=== PATIENT | female | born 1960 | race African-American/Black ===

== ENCOUNTER 2025-03-16 15:00 | Outpatient (AMB) | payer OTHER, SELFPAY ==
--- NOTE | 2025-03-16 15:11 | HO.NEPHOV ---
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 She has been a diabetic for sometime with sub optimal blood sugar control. She had taken Jardiance in the past which apparently was causing vaginal candidiasis and was discontinued. She has been hypertensive for sometime and is on ARB. She denies any excess sodium in the diet. She has no H/O hypokalemia , hypercalcemia, ELINOR, uncontrolled thyroid disorders but has retinopathy, renal dysfunction or proteinuria. She has H/O renal calculi. She denies significant weight gain, excess NSAID intake, CAD, carotid stenosis, PAD, CVA or CHF. She is compliant with medication and denies orthostatic symptoms, flushing, palpitations, edema, chest pain, headache or visual disturbances. Her recent serum creatinine has gone up to 1.6. She does not take excess NSAID's and maintain good hydration [facility] Medical History (Updated 03/16/25 @ 15:19 by Thaddeus Mei MD) Hyperglycemia Submucous leiomyoma of uterus Severe obesity Perimenopausal Microalbuminuria History of menorrhagia Hypertension Hypercholesteremia Extramedullary hematopoiesis Diabetic retinopathy Diabetes mellitus Bilateral kidney stones Anemia Surgical History (Updated 03/16/25 @ 15:14 by Chiara Farooq MA) History of cataract surgery History of hysterectomy Family History (Updated 03/16/25 @ 15:13 by Chiara Farooq MA) Father Diabetes mellitus Mother Cancer Son Diabetes mellitus Sister Diabetes mellitus Social History (Updated 03/16/25 @ 15:12 by Chiara Farooq MA) Alcohol intake: never Patient Tobacco Use Status: Never used Tobacco Use of substances other than those prescribed or required for medical reasons: No Review of Systems Const All systems reviewed & are unremarkable except as noted in HPI and below Physical Exam Const General: comfortable and no acute distress Orientation/consciousness: patient oriented x3 HEENT Head: Yes normocephalic Mouth: Normal oral and palatal mucosa present Eyes EOM: EOMs intact bilaterally Neck Neck: Yes supple Resp Auscultation: clear to auscultation bilaterally Cardio Jugular venous distension: no JVD Rate: regular rate GI Palpation (GI): Soft to palpation Auscultation: normal bowel sounds General: Yes no CVA tenderness Back/Spine/Pelvis Back: no CVA tenderness Skin General skin exam: no rashes or lesions noted Neuro General: patient oriented x3 and moves all extremities Extrem General: Yes no pedal edema Assessment & Plan Assessment & Plan (1) CKD stage 3 due to type 2 diabetes mellitus: Code(s): E11.22 - Type 2 diabetes mellitus with diabetic chronic kidney disease; N18.30 - Chronic kidney disease, stage 3 unspecified Category: Medical (2) Hypertension: Code(s): I10 - Essential (primary) hypertension Category: Medical Qualifiers: Hypertension type: primary hypertension Qualified Code(s): I10 - Essential (primary) hypertension Plan Low sodium diet; continued life style modification Will benefit from weight loss- ? GLP 1 agonist given CKD Ordered Doppler of renal arteries and renal USS Encouraged to monitor BP at home; Not on SGLT2 i(pt D/Rakesh it) No NSAID's if possible; Good hydration; Labs ordered for today Answered all questions/ Follow up given Orders: Orders Complete Blood Count Auto Diff Today E11.22 - Type 2 diabetes mellitus with diabetic chronic kidney disease, I10 - Essential (primary) hypertension, N18.30 - Chronic kidney disease, stage 3 unspecified Immunofixation, Random Urine Today E11.22 - Type 2 diabetes mellitus with diabetic chronic kidney disease, I10 - Essential (primary) hypertension, N18.30 - Chronic kidney disease, stage 3 unspecified Complement C4 Today E11.22 - Type 2 diabetes mellitus with diabetic chronic kidney disease, I10 - Essential (primary) hypertension, N18.30 - Chronic kidney disease, stage 3 unspecified Myeloperoxidase Antibody Today E11.22 - Type 2 diabetes mellitus with diabetic chronic kidney disease, I10 - Essential (primary) hypertension, N18.30 - Chronic kidney disease, stage 3 unspecified Proteinase 3 PR3 Antibodies Today E11.22 - Type 2 diabetes mellitus with diabetic chronic kidney disease, I10 - Essential (primary) hypertension, N18.30 - Chronic kidney disease, stage 3 unspecified Phospholipase A2 Receptor Pnl Today E11.22 - Type 2 diabetes mellitus with diabetic chronic kidney disease, I10 - Essential (primary) hypertension, N18.30 - Chronic kidney disease, stage 3 unspecified Anti Glomerular Basement Memb Today E11.22 - Type 2 diabetes mellitus with diabetic chronic kidney disease, I10 - Essential (primary) hypertension, N18.30 - Chronic kidney disease, stage 3 unspecified Anti DNA DS Antibody Today E11.22 - Type 2 diabetes mellitus with diabetic chronic kidney disease, I10 - Essential (primary) hypertension, N18.30 - Chronic kidney disease, stage 3 unspecified Parathyroid Hormone Intact Today E11.22 - Type 2 diabetes mellitus with diabetic chronic kidney disease, I10 - Essential (primary) hypertension, N18.30 - Chronic kidney disease, stage 3 unspecified US renal BI 3 Weeks E11. - Type 2 diabetes mellitus with diabetic chronic kidney disease, I10 - Essential (primary) hypertension, N18.30 - Chronic kidney disease, stage 3 unspecified US renal doppler 3 Weeks E11. - Type 2 diabetes mellitus with diabetic chronic kidney disease, I10 - Essential (primary) hypertension, N18.30 - Chronic kidney disease, stage 3 unspecified Electrolytes Today E11. - Type 2 diabetes mellitus with diabetic chronic kidney disease, I10 - Essential (primary) hypertension, N18.30 - Chronic kidney disease, stage 3 unspecified Calcium Today E11. - Type 2 diabetes mellitus with diabetic chronic kidney disease, I10 - Essential (primary) hypertension, N18.30 - Chronic kidney disease, stage 3 unspecified Blood Urea Nitrogen Today E11. - Type 2 diabetes mellitus with diabetic chronic kidney disease, I10 - Essential (primary) hypertension, N18.30 - Chronic kidney disease, stage 3 unspecified Creatinine Today E11.22 - Type 2 diabetes mellitus with diabetic chronic kidney disease, I10 - Essential (primary) hypertension, N18.30 - Chronic kidney disease, stage 3 unspecified Protein Creatinine Ratio, Ur Today E11.22 - Type 2 diabetes mellitus with diabetic chronic kidney disease, I10 - Essential (primary) hypertension, N18.30 - Chronic kidney disease, stage 3 unspecified Immunofixation Pnl, Serum Today E11.22 - Type 2 diabetes mellitus with diabetic chronic kidney disease, I10 - Essential (primary) hypertension, N18.30 - Chronic kidney disease, stage 3 unspecified Hepatitis B Core Antibody Today E11.22 - Type 2 diabetes mellitus with diabetic chronic kidney disease, I10 - Essential (primary) hypertension, N18.30 - Chronic kidney disease, stage 3 unspecified Hepatitis B Surface Antibody Today E11.22 - Type 2 diabetes mellitus with diabetic chronic kidney disease, I10 - Essential (primary) hypertension, N18.30 - Chronic kidney disease, stage 3 unspecified Complement C3 Today E11. - Type 2 diabetes mellitus with diabetic chronic kidney disease, I10 - Essential (primary) hypertension, N18.30 - Chronic kidney disease, stage 3 unspecified Vitamin D 25-OH Total Today . - Type 2 diabetes mellitus with diabetic chronic kidney disease, I10 - Essential (primary) hypertension, N18.30 - Chronic kidney disease, stage 3 unspecified Coding Level of Care Code New Pt Level 4 (06479) Diagnoses CKD stage 3 due to type 2 diabetes mellitus E11.; N18.30 Primary hypertension I10 Hypertension type: primary hypertension
[2025-03-16 15:17] VITALS: BP 144/90; PULSE 101; O2SAT 97; BMI 37.6
--- OUTSIDE RECORDS SUMMARY | 2025-03-16 16:18 | XMS_ITS | Clinical Summary ---
Author Organization 175 [facility] Address [address] [place] [address] Phone Care Team Providers Care Management Advisor Name Role Phone Camron Stovall MD Primary Care Provider [phone] Allergies Active Allergy Reactions Criticality Noted Date Comments Penicillin G 09/03/2024 Medications acetaminophen (TYLENOL) 500 mg tablet Take 2 tablets (1,000 mg total) by mouth every 8 (eight) hours. 30 tablet 09/04/19 25 Active cholecalcifero l (VITAMIN D-3) 1,250 mcg (50,000 unit) capsule Take 1 capsule (50,000 Units total) by mouth. 11/17/19 25 Active cyanocobalamin , vitamin B-12, 1,000 mcg tablet, sublingual TAKE 1 TABLET (SUBLINGUAL) DAILY FOR 90 DAYS 11/17/19 25 Active Jardiance 25 mg tablet Take 1 tablet (25 mg total) by mouth 1 (one) time each day. 07/23/20 24 Active fenofibrate (TRICOR) 145 mg tablet Take 1 tablet (145 mg total) by mouth 1 (one) time each day. 10/01/19 25 Active glipiZIDE (GLUCOTROL XL) 10 mg 24 hr tablet TAKE 1 TABLET (ORAL) FOR 90 DAYS 01/21/20 25 Active ketorolac (ACULAR) 0.5 % ophthalmic solution PLEASE SEE ATTACHED FOR DETAILED DIRECTIONS 01/21/20 25 Active losartan (COZAAR) 100 mg tablet Take 1 tablet (100 mg total) by mouth 1 (one) time each day. 01/21/20 25 Active mecobalamin, vitamin B12, 1,000 mcg tablet,disinte grating DISSOLVE 1 TABLET BY MOUTH ONCE DAILY 05/28/20 24 Active metFORMIN (GLUCOPHAGE) 1,000 mg tablet Take 1 tablet (1,000 mg total) by mouth 2 (two) times a day. 01/11/20 25 Active nystatin (MYCOSTATIN) ointment APPLY 1 APPLICATION OF OINTMENT TOPICALLY UNDER THE BREAST FOLDS THREE TIMES DAILY 04/27/20 24 Active atorvastatin (LIPITOR) 10 mg tablet Take 1 tablet (10 mg total) by mouth 1 (one) time each day. 30 each 5 02/16/20 25 025 Active atorvastatin (LIPITOR) 10 mg tablet Take 1 tablet (10 mg total) by mouth 1 (one) time each day. 30 each 5 03/02/20 25 025 Active ibuprofen (ADVIL,MOTRIN) 600 mg tablet Take 1 tablet (600 mg total) by mouth every 8 (eight) hours if needed for moderate pain. 30 tablet 09/04/19 25 025 Discontinued Active Problems Problem Noted Date Diagnosed Date Diabetes mellitus ([facility] V24, [facility] V28) Diabetic retinopathy ([facility] V24, [facility] V28) 02/15/2025 Extramedullary hematopoiesis 02/15/2025 Hypercholesterolemia 02/15/2025 Hypertension 02/15/2025 Menorrhagia 02/15/2025 Microalbuminuria 02/15/2025 Severe obesity ([facility] V24, [facility] V28) 2024 Submucous leiomyoma of uterus 02/15/2025 Anemia 02/15/2025 Bilateral kidney stones 02/15/2025 Perimenopausal 04/19/2006 Encounters Date Type Department Care Team Description 03/01/2025 Telephone Internal Medicine - [address] [phone] Gwendolyn Ram MA Lab Results 02/15/2025 2:00 PM EDT Office Visit Internal Medicine [address] [phone] Camron Stovall MD Diabetes mellitus due to underlying condition with chronic kidney disease, without long-term current use of insulin, unspecified CKD stage (CMS/HCC V24, CMS/HCC V28) (Primary Dx); Primary hypertension; Hypercholesterolemia; Stage 2 chronic kidney disease from Last 3 Months Social History Tobacco Use Types Packs/Day Years Used Date Smoking Tobacco: Never Assessed Comments Unknown Sex and Gender Information Value Date Recorded Sex Assigned at Female 09/03/2024 10:32 PM EST Legal Sex Female 6:33 PM EST Gender Identity Female 09/03/2024 10:32 PM EST Sexual Orientation Straight 09/03/2024 10 :32 PM EST Last Filed Vital Signs Vital Sign Reading Time Taken Comments Blood Pressure 125/78 02/15/2025 1:49 PM EDT Pulse 103 02/15/2025 1:49 PM EDT Temperature 36.4 C (97.6 F) 02/15/2025 1:49 PM EDT Respiratory Rate 18 09/04/2024 2:06 AM EST Oxygen Saturation 95% 02/15/2025 1:49 PM EDT Inhaled Oxygen Concentration - - Weight 96.2 kg (212 lb) 02/15/2025 1:49 PM EDT Height 162.6 cm (5' 4 ) 02/15/2025 1:49 PM EDT Body Mass Index 36.39 02/15/2025 1:49 PM EDT Plan of Treatment Upcoming Encounters Date Type Department Care Team (Late st Contact Info) Description 07/05/2025 1:15 PM EST Office Visit Internal Medicine - [place] 175 [facility] [address] [place] [phone] Camron Stovall MD 175 [facility] [address] [place] [address] Health Maintenance Due Date Last Done Comments Breast Cancer Screening 1959 Diabetes: Annual Foot Exam 1969 Diabetes: Annual Retina Eye Exam 1969 Zoster Vaccines (1 of 2) 1978 Cervical Cancer Screening: Pap Smear 1980 RSV Immunization Adult Patients (1 - Risk 60-74 years 1-dose series) 2019 Colorectal Cancer Screening: Colonoscopy 08/04/2022 Depression Screening 08/04/2022 Hepatitis C Screening 08/04/2022 Osteoporosis Screening (Bone Density Screening) 08/04/2022 Social Influencers of Health Screening 08/04/2022 Falls Risk Assessment 2024 Diabetes: Annual Urine Albumin-Creatinine Ratio (uACR) 09/04/2024 COVID-19 Vaccine (8 - Pfizer risk season) 2025 09/15/2024, 05/27/2023, 06/24/2022, Additional history exists Influenza Vaccine (#1) 2025 , 05/24/2023, 06/24/2022, Additional history exists Diabetes: Blood Sugar Control Test (HGBA1C) 08/24/2025 02/22/2025 Diabetes: Annual GFR (Glomerular Filtration Rate) 02/22/2026 02/22/2025, 09/03/2024 Hypertension/CHF/CAD Annual BMP Blood Test 02/22/2026 02/22/2025, 09/03/2024 Cholesterol Screening (Lipid Panel) 02/22/2030 02/22/2025 DTaP,Tdap,and Td Vaccines (3 - Td or Tdap) 04/27/2034 04/27/2024, 02/25/2017 Pneumococcal Vaccine: 50+ Years Completed 04/27/2024, 02/03/2009 HIB Vaccines Aged Out No longer eligi ble based on patient's age to complete this topic HPV Vaccines Aged Out No longer eligi ble based on patient's age to complete this topic Hepatitis A Vaccines Aged Out No long er eligible based on patient's age to complete this topic Hepatitis B Vaccines Aged Out No long er eligible based on patient's age to complete this topic IPV Vaccines Aged Out No longer eligi ble based on patient's age to complete this topic MMR Vaccines Aged Out No longer eligi ble based on patient's age to complete this topic Meningococcal ACWY Vaccine Aged Out N o longer eligible based on patient's age to complete this topic Meningococcal B Vaccine Aged Out No l onger eligible based on patient's age to complete this topic RSV Immunization Patients Under 20 months Aged Out No longer eligible based on patient's age to complete this topic Varicella Vaccines Aged Out No longer eligible based on patient's age to complete this topic Procedures Procedure Name Priority Date/Time Associated Diagnosis Comments CBC WITH AUTO DIFFERENTIAL Routine 02/22/2025 9:19 AM EDT Primary hypertension Hypercholesterolemi a Diabetes mellitus due to underlying condition with chronic kidney disease, without long-term current use of insulin, unspecified CKD stage (CMS/HCC V24, CMS/HCC V28) HEMOGLOBIN A1C Routine 02/22/2025 9:19 AM EDT Primary hypertension Hypercholesterolemi a Diabetes mellitus due to underlying condition with chronic kidney disease, without long-term current use of insulin, unspecified CKD stage (CMS/HCC V24, CMS/HCC V28) THYROID STIMULATING HORMONE Routine 02/22/2025 9:19 AM EDT Primary hypertension Hypercholesterolemi a Diabetes mellitus due to underlying condition with chronic kidney disease, without long-term current use of insulin, unspecified CKD stage (CMS/HCC V24, CMS/HCC V28) LIPID PANEL WITH REFLEX TO DIRECT LDL Routine 02/22/2025 9:19 AM EDT Primary hypertension Hypercholesterolemi a Diabetes mellitus due to underlying condition with chronic kidney disease, without long-term current use of insulin, unspecified CKD stage (CMS/HCC V24, CMS/HCC V28) COMPREHENSIVE METABOLIC PANEL Routine 02/22/2025 9:19 AM EDT Primary hypertension Hypercholesterolemi a Diabetes mellitus due to underlying condition with chronic kidney disease, without long-term current use of insulin, unspecified CKD stage (CMS/HCC V24, CMS/HCC V28) CBC AND DIFFERENTIAL Routine 02/22/2025 9:19 AM EDT Primary hypertension Hypercholesterolemi a Diabetes mellitus due to underlying condition with chronic kidney disease, without long-term current use of insulin, unspecified CKD stage (CMS/HCC V24, CMS/HCC V28) from Last 3 Months Results * (ABNORMAL) Lipid panel with reflex to direct LDL (02/22/2025 9:19 AM EDT) [facility] Cholesterol 327(H) 0 - 200 mg/dL LAB CHEMISTRY METHOD 02/22/2025 8:24 PM EDT [facility] Triglycerides 263(H) 0 - 150 mg/dL LAB CHEMISTRY METHOD 02/22/2025 8:24 PM EDT [facility] HDL 56 >=40 mg/dL LAB CHEMISTRY METHOD 02/22/2025 8:24 PM EDT [facility] LDL Calculated 218(H) 0 - 100 mg/dL LAB CHEMISTRY METHOD 02/22/2025 8:24 PM EDT [facility] VLDL Cholesterol Solis 52.6 mg/dL LAB CHEMISTRY METHOD 02/22/2025 8:24 PM EDT [facility] Non HDL Chol. (LDL+VLDL) 271(H) <145 mg/dL LAB CHEMISTRY METHOD 02/22/2025 8:24 PM EDT [facility] Chol/HDL Ratio 5.8(H) 0.0 - 4.4 LAB CHEMISTRY METHOD 02/22/2025 8:24 PM EDT [facility] Blood Venous blood specimen / Unknown Venipuncture / Unknown 02/22/2025 9:19 AM EDT 02/22/2025 9:20 AM EDT us Camron Stovall MD LAB BLOOD ORDERABLES Final Resul t [facility] [address] [place] [address], * (ABNORMAL) CBC auto differential (02/22/2025 9:19 AM EDT) WBC 6.7 4.8 - 10.8 K/mcL LAB HEMETOLOGY METHOD 02/22/2025 2:15 PM EDT [facility] RBC 4.80 3.80 - 4.80 M/mcL LAB HEMETOLOGY METHOD 02/22/2025 2:15 PM EDT [facility] Hemoglobin 12.5 11.5 - 16.0 g/dL LAB HEMETOLOGY METHOD 02/22/2025 2:15 PM EDT [facility] Hematocrit 40.3 35.0 - 47.0 % LAB HEMETOLOGY METHOD 02/22/2025 2:15 PM EDT [facility] MCV 84.8 79.0 - 98.0 FL LAB HEMETOLOGY METHOD 02/22/2025 2:15 PM EDT [facility] MCH 26.3(L) 27.0 - 32.0 pcg LAB HEMETOLOGY METHOD 02/22/2025 2:15 PM EDT [facility] MCHC 31.0(L) 32.0 - 37.0 g/dL LAB HEMETOLOGY METHOD 02/22/2025 2:15 PM EDT [facility] RDW 13.5 11.0 - 15.0 % LAB HEMETOLOGY METHOD 02/22/2025 2:15 PM EDT [facility] Platelets 224 130 - 400 K/mcL LAB HEMETOLOGY METHOD 02/22/2025 2:15 PM EDT [facility] MPV 13.4(H) 7.0 - 11.0 FL LAB HEMETOLOGY METHOD 02/22/2025 2:15 PM EDT [facility] NRBC 0.0 <1.0 % LAB HEMETOLOGY METHOD 02/22/2025 2:15 PM EDT [facility] NRBC Absolute 0.00 <0.10 K/mcL LAB HEMETOLOGY METHOD 02/22/2025 2:15 PM EDT [facility] Neutrophils Relative 47.4 % LAB HEMETOLOGY METHOD 02/22/2025 2:15 PM EDT [facility] Lymphocytes Relative 38.7 % LAB HEMETOLOGY METHOD 02/22/2025 2:15 PM EDT [facility] Monocytes Relative 10.2 % LAB HEMETOLOGY METHOD 02/22/2025 2:15 PM EDT [facility] Eosinophils Relative 2.8 % LAB HEMETOLOGY METHOD 02/22/2025 2:15 PM EDT [facility] Basophils Relative 0.6 % LAB HEMETOLOGY METHOD 02/22/2025 2:15 PM EDT [facility] Immature Granulocytes Relative 0.3 % LAB HEMETOLOGY METHOD 02/22/2025 2:15 PM EDT [facility] Neutrophils Absolute 3.17 1.50 - 7.00 K/mcL LAB HEMETOLOGY METHOD 02/22/2025 2:15 PM EDT [facility] Lymphocytes Absolute 2.59 1.00 - 5.00 K/mcL LAB HEMETOLOGY METHOD 02/22/2025 2:15 PM EDT [facility] Monocytes Absolute 0.68 0.20 - 1.00 K/mcL LAB HEMETOLOGY METHOD 02/22/2025 2:15 PM EDT [facility] Eosinophils Absolute 0.19 0.00 - 0.50 K/mcL LAB HEMETOLOGY METHOD 02/22/2025 2:15 PM EDT [facility] Basophils Absolute 0.04 0.00 - 0.20 K/mcL LAB HEMETOLOGY METHOD 02/22/2025 2:15 PM EDT [facility] Immature Granulocytes Absolute 0.02 0.00 - 0.03 K/mcL LAB HEMETOLOGY METHOD 02/22/2025 2:15 PM EDT [facility] Blood Venous blood specimen / Unknown Venipuncture / Unknown 02/22/2025 9:19 AM EDT 02/22/2025 9:20 AM EDT us Camron Stovall MD LAB BLOOD ORDERABLES Final Resul t [facility] [address] [place] [address], * Thyroid stimulating hormone (02/22/2025 9:19 AM EDT) TSH 2.35 0.40 - 4.00 mcIU/mL LAB CHEMISTRY METHOD 02/22/2025 8:42 PM EDT [facility] Blood Venous blood specimen / Unknown Venipuncture / Unknown 02/22/2025 9:19 AM EDT 02/22/2025 9:20 AM EDT us Camron Stovall MD LAB BLOOD ORDERABLES Final Resul t Performing Organization Address [facility] Co de Phone Number [facility] [address] [place] [address], [place] [phone] * (ABNORMAL) Hemoglobin A1c (02/22/2025 9:19 AM EDT) Pathologist [facility] Hemoglobin A1C 9.6(H) <6.5 % LAB CHEMISTRY METHOD 02/22/2025 9:17 PM EDT [facility] Mean Bld Glu Estim. 229 mg/dL LAB CHEMISTRY METHOD 02/22/2025 9:17 PM EDT [facility] Blood Venous blood specimen / Unknown Venipuncture / Unknown 02/22/2025 9:19 AM EDT 02/22/2025 9:20 AM EDT us Camron Stovall MD LAB BLOOD ORDERABLES Final Resul t Performing Organization Address [facility]/ZIP Co de Phone Number [facility] [address] [place] [address], [place] [phone] * (ABNORMAL) Comprehensive metabolic panel (02/22/2025 9:19 AM EDT) Pathologist [facility] Sodium 140 133 - 145 mmol/L LAB CHEMISTRY METHOD 02/22/2025 8:26 PM EDT [facility] Potassium 4.6 3.5 - 5.5 mmol/L LAB CHEMISTRY METHOD 02/22/2025 8:26 PM EDT [facility] Chloride 106 96 - 110 mmol/L LAB CHEMISTRY METHOD 02/22/2025 8:26 PM [facility] CO2 27 21 - 32 mmol/L LAB CHEMISTRY METHOD 02/22/2025 8:26 PM [facility] Anion Gap 7 3 - 11 LAB CHEMISTRY METHOD 02/22/2025 8:26 PM [facility] Glucose 257(H) 70 - 100 mg/dL LAB CHEMISTRY METHOD 02/22/2025 8:26 PM [facility] BUN 33(H) 5 - 25 mg/dL LAB CHEMISTRY METHOD 02/22/2025 8:26 PM [facility] Creatinine 1.30(H) 0.50 - 1.10 mg/dL LAB CHEMISTRY METHOD 02/22/2025 8:26 PM [facility] eGFR 46(L) >=60 mL/min/1. 73m2 LAB CHEMISTRY METHOD 02/22/2025 8:26 PM [facility] Comment:Calculation based on the Chronic Kidney Disease Epidemiology Collaboration (CKD-EPI) equation refit without adjustment for race. BUN/Creatinine Ratio 25.4 LAB CHEMISTRY METHOD 02/22/2025 8:26 PM [facility] Calcium 10.1 8.5 - 10.5 mg/dL LAB CHEMISTRY METHOD 02/22/2025 8:26 PM [facility] AST (SGOT) 11 10 - 42 unit/L LAB CHEMISTRY METHOD 02/22/2025 8:26 PM [facility] ALT (SGPT) 19 10 - 60 unit/L LAB CHEMISTRY METHOD 02/22/2025 8:26 PM [facility] Alkaline Phosphatase 72 42 - 121 unit/L LAB CHEMISTRY METHOD 02/22/2025 8:26 PM [facility] Total Protein 7.3 6.0 - 8.0 g/dL LAB CHEMISTRY METHOD 02/22/2025 8:26 PM EDT [facility] Albumin 3.7 3.2 - 5.0 g/dL LAB CHEMISTRY METHOD 02/22/2025 8:26 PM EDT [facility] Total Bilirubin 0.3 0.0 - 1.4 mg/dL LAB CHEMISTRY METHOD 02/22/2025 8:26 PM EDT [facility] Blood Venous blood specimen / Unknown Venipuncture / Unknown 02/22/2025 9:19 AM EDT 02/22/2025 9:20 AM EDT us Camron Stovall MD LAB BLOOD ORDERABLES Final Resul t [facility] [address] [place] [address], [place] [phone] from Last 3 Months Insurance MEDICAID - [place] [facility] KERRI GARCIA [id number] Care Teams Management Advisor Relationship Specialty Start Date End Date Camron Stovall MD [address] [place] [id number] PCP - General Internal Medicine 06/19/24
== END 2025-03-16 15:41 | disposition home or self-care (01) ==
LOC: HO.HKAS 15:01
PROVIDERS: PCP Internal Medicine; Visit Provider Internal Medicine Nephrology
DX: E11.22 Type 2 diabetes mellitus with diabetic chronic kidney disease (principal); N18.30 Chronic kidney disease, stage 3 unspecified; I10 Essential (primary) hypertension
CPT/HCPCS: 99204

== ENCOUNTER 2025-03-16 15:00 | Outpatient (REF) | payer OTHER, SELFPAY ==
[2025-03-16 18:16] LABS: Imm Gran Abs Auto 0.03 X10*3/uL (0.00-0.03); NRBC Abs Auto 0.000 X10*3/uL (0.0-0.012); NRBC Pct Auto 0.0 /100WBC (0.0-0.2); SCAN SMEAR FLAG 1
[2025-03-16 18:18] LABS: Hematocrit 38.6 % (37.0-47.0); Hemoglobin 12.2 g/dl (12.0-16.0); Imm Gran Pct Auto 0.3 % (0.0-0.4); Lymphocytes Absolute Auto 2.8 X10*3/uL (1.2-4.9); Mean Corpuscular HGB Conc 31.6 g/dl (31.0-35.0); Mean Corpuscular Hemoglobin 26.4 pg (27.0-33.0); Mean Corpuscular Volume 83.5 fL (80.0-98.0); Platelet Count 233 X10*3/uL (160-400); Red Blood Count 4.62 X10*6/uL (4.20-5.50); White Blood Count 8.6 X10*3/uL (4.8-10.8)
[2025-03-16 18:24] LABS: MANUAL DIFF FLAG NO; PLT ABN DIST 1
[2025-03-16 18:28] LABS: Protein/Creatinine Ratio, Ur 0.17 (<0.2); Total Protein Urine Random 21 mg/dL (<12)
[2025-03-16 18:32] LABS: Parathyroid Hormone Intact 114.9 pg/mL (8.7-77.1)
[2025-03-16 18:37] LABS: Anion Gap 16 (12-20); Blood Urea Nitrogen 37 mg/dL (9-16); Calcium 10.0 mg/dL (8.4-10.2); Carbon Dioxide 26 mmol/L (22-29); Chloride 100 mmol/L (96-108); Estimated Glomerular Filt Rate 34; Potassium 4.7 mmol/L (3.3-5.1); Sodium 137 mmol/L (135-145)
[2025-03-17 04:25] LABS: HBS Num1 1.85 mIU/mL (0-7.99); HBc Num1 0.04 S/CO (0.00-0.79); ~Hepatitis B Surface Antibody NONREACTIVE (Nonreactive)
[2025-03-18 19:33] LABS: Anti Glomerular Basement Memb <1.0 AI; Proteinase 3 PR3 Antibodies <1.0 AI
[2025-03-20 22:13] LABS: Phospholipase A2 IgG ELISA <4 RU/mL; Phospholipase A2 IgG IFA NEGATIVE (NEGATIVE)
== END 2025-03-16 15:01 | disposition home or self-care (01) ==
LOC: HO.HKASLDS 15:00
PROVIDERS: PCP Internal Medicine; Visit Provider Internal Medicine Nephrology
DX: E11.22 Type 2 diabetes mellitus with diabetic chronic kidney disease (principal); N18.30 Chronic kidney disease, stage 3 unspecified; I10 Essential (primary) hypertension
CPT/HCPCS: 80051; 82306; 82310; 82565; 82570; 82784; 83520; 83970; 84156; 84520; 85025; 86021; 86160; 86225; 86255; 86334; 86335; 86704; 86706; 99202

== ENCOUNTER 2025-04-20 15:11 | Outpatient (AMB) | payer OTHER, SELFPAY ==
--- NOTE | 2025-04-20 15:16 | HO.NEPHOV_ITS ---
Vital Signs 04/20/25 15:18 Height 5 ft 4 in Weight 218 lb 4 oz BMI 37.5 BP 150/80 H Blood Pressure Location Rt brachial Position Sitting Pulse 107 H Pulse Source Pulse Oximeter Pulse Oximetry (%) 98 Oxygen Delivery Method Room Air Intake Visit Reasons: 1mon f/u /labs-LVM Underpresser Hand Required: No Accompanied by: Self / Same As Patient Allergies penicillin G Allergy (Verified 04/20/25 15:18) Unknown steroid Allergy (Uncoded 03/16/25 15:20) Swelling HPI Comments Details: I had the pleasure of seeing Tessie in follow up for CKD, renal calculi and hypertension. She has been a diabetic for sometime with sub optimal blood sugar control. She had taken Jardiance in the past which apparently was causing vaginal candidiasis and was discontinued. She has been hypertensive for sometime and is on ARB. She denies any excess sodium in the diet. She has no H/O hypokalemia , hypercalcemia, ELINOR, uncontrolled thyroid disorders but has retinopathy, renal dysfunction or proteinuria. She has H/O renal calculi. She denies significant weight gain, excess NSAID intake, CAD, carotid stenosis, PAD, CVA or CHF. She is compliant with medication and denies orthostatic symptoms, flushing, palpitations, edema, chest pain, headache or visual disturbances. Her recent serum creatinine is stable. She does not take excess NSAID's and maintain good hydration [facility] Medical History (Updated 04/20/25 @ 15:35 by Thaddeus Mei MD) Hyperglycemia Submucous leiomyoma of uterus Severe obesity Perimenopausal Microalbuminuria History of menorrhagia Hypertension Hypercholesteremia Extramedullary hematopoiesis Diabetic retinopathy Diabetes mellitus Bilateral kidney stones Anemia Surgical History History of cataract surgery History of hysterectomy Family History Father Diabetes mellitus Mother Cancer Son Diabetes mellitus Sister Diabetes mellitus Social History Alcohol intake: never Patient Tobacco Use Status: Never used Tobacco Review of Systems Const All systems reviewed & are unremarkable except as noted in HPI and below Physical Exam Vital Signs: Last Vital Signs Pulse 107 H 04/20/25 15:18 BP 150/80 H 04/20/25 15:18 Pulse Ox 98 04/20/25 15:18 Oxygen Delivery Method Room Air 04/20/25 15:18 BMI result Body Mass Index 37.5 Const General: comfortable and no acute distress Orientation/consciousness: patient oriented x3 HEENT Head: Yes normocephalic Mouth: Normal oral and palatal mucosa present Eyes EOM: EOMs intact bilaterally Neck Neck: Yes supple Resp Auscultation: clear to auscultation bilaterally Cardio Jugular venous distension: no JVD Rate: regular rate GI Palpation (GI): Soft to palpation Auscultation: normal bowel sounds General: Yes no CVA tenderness Back/Spine/Pelvis Back: no CVA tenderness Skin General skin exam: no rashes or lesions noted Neuro General: patient oriented x3 and moves all extremities Extrem General: Yes no pedal edema Results Reviewed Nephrology Results: Hgb, (12.0-16.0) 12.2 g/dl 03/16/25 WBC, (4.8-10.8) 8.6 X10*3/uL 03/16/25 Plt Count, (160-400) 233 X10*3/uL 03/16/25 Sodium, (135-145) 137 mmol/L 03/16/25 Potassium, (3.3-5.1) 4.7 mmol/L 03/16/25 Chloride, (96-108) 100 mmol/L 03/16/25 Carbon Dioxide, (22-29) 26 mmol/L 03/16/25 BUN, (9-16) 37 mg/dL H 03/16/25 Creatinine, (0.5-1.4) 1.55 mg/dL H 03/16/25 Calcium, (8.4-10.2) 10.0 mg/dL 03/16/25 PTH Intact, (8.7-77.1) 114.9 pg/mL H 03/16/25 Urine Creatinine 126.40 mg/dL 03/16/25 Protein/Creatinin Ratio, (<0.2) 0.17 03/16/25 Assessment & Plan Assessment & Plan (1) CKD stage 3 due to type 2 diabetes mellitus: Code(s): E11.22 - Type 2 diabetes mellitus with diabetic chronic kidney disease; N18.30 - Chronic kidney disease, stage 3 unspecified Category: Medical (2) Hypertension: Code(s): I10 - Essential (primary) hypertension Category: Medical Qualifiers: Hypertension type: primary hypertension Qualified Code(s): I10 - Essential (primary) hypertension (3) Renal calculi: Code(s): N20.0 - Calculus of kidney Category: Medical (4) Renal artery stenosis: Code(s): I70.1 - Atherosclerosis of renal artery Category: Medical Plan Low sodium diet; continued life style modification Will benefit from weight loss- ? GLP 1 agonist given CKD Doppler of renal arteries showed left TEQUILA and renal USS showed renal calculi on right side Encouraged to monitor BP at home; Not on SGLT2 i(pt D/Rakesh it); On ARB No NSAID's if possible; Good hydration; Labs ordered for follow up Will be a candidate for Chlorthalidone Answered all questions/ Follow up given Orders: Orders Hemoglobin A1c 3 Months E11.22 - Type 2 diabetes mellitus with diabetic chronic kidney disease, I10 - Essential (primary) hypertension, I70.1 - Atherosclerosis of renal artery, N18.30 - Chronic kidney disease, stage 3 unspecified, N20.0 - Calculus of kidney Electrolytes 3 Months E11.22 - Type 2 diabetes mellitus with diabetic chronic kidney disease, I10 - Essential (primary) hypertension, I70.1 - Atherosclerosis of renal artery, N18.30 - Chronic kidney disease, stage 3 unspecified, N20.0 - Calculus of kidney Blood Urea Nitrogen 3 Months E11.22 - Type 2 diabetes mellitus with diabetic chronic kidney disease, I10 - Essential (primary) hypertension, I70.1 - Atherosclerosis of renal artery, N18.30 - Chronic kidney disease, stage 3 unspecified, N20.0 - Calculus of kidney Creatinine 3 Months E11.22 - Type 2 diabetes mellitus with diabetic chronic kidney disease, I10 - Essential (primary) hypertension, I70.1 - Atherosclerosis of renal artery, N18.30 - Chronic kidney disease, stage 3 unspecified, N20.0 - Calculus of kidney Coding Level of Care Code Est Pt Level 4 (23841) Diagnoses CKD stage 3 due to type 2 diabetes mellitus E11.22; N18.30 Primary hypertension I10 Hypertension type: primary hypertension Renal calculi N20.0 Renal artery stenosis I70.1
[2025-04-20 15:18] VITALS: BP 150/80; PULSE 107; O2SAT 98; BMI 37.5
--- OUTSIDE RECORDS SUMMARY | 2025-04-20 16:28 | XMS_ITS | Clinical Summary ---
Author Organization 175 [facility] Address [address] [place] [address] Phone Care Team Providers Care Produce Wrapper Name Role Phone Camron Stovall MD Primary Care Provider [phone] Allergies Active Allergy Reactions Criticality Noted Date Comments Penicillin G 09/03/2024 Medications acetaminophen (TYLENOL) 500 mg tablet Take 2 tablets (1,000 mg total) by mouth every 8 (eight) hours. 30 tablet 5 Active Jardiance 25 mg tablet Take 1 tablet (25 mg total) by mouth 1 (one) time each day. 4 Active fenofibrate (TRICOR) 145 mg tablet Take 1 tablet (145 mg total) by mouth 1 (one) time each day. 5 Active ketorolac (ACULAR) 0.5 % ophthalmic solution PLEASE SEE ATTACHED FOR DETAILED DIRECTIONS 5 Active mecobalamin, vitamin B12, 1,000 mcg tablet,disinte grating DISSOLVE 1 TABLET BY MOUTH ONCE DAILY 4 Active nystatin (MYCOSTATIN) ointment APPLY 1 APPLICATION OF OINTMENT TOPICALLY UNDER THE BREAST FOLDS THREE TIMES DAILY 4 Active atorvastatin (LIPITOR) 10 mg tablet Take 1 tablet (10 mg total) by mouth 1 (one) time each day. 30 each 5 5 08/14/20 25 Active cyanocobalamin , vitamin B-12, 1,000 mcg tablet, sublingual Place 1,000 mcg under the tongue 1 (one) time each day. 90 tablet 5 06/30/20 25 Active atorvastatin (LIPITOR) 10 mg tablet Take 1 tablet (10 mg total) by mouth 1 (one) time each day. 30 each 5 5 09/28/19 26 Active cholecalcifero l (VITAMIN D-3) 1,250 mcg (50,000 unit) capsule Take 1 capsule (50,000 Units total) by mouth 1 (one) time per week. 12 capsule 5 Active glipiZIDE (GLUCOTROL XL) 10 mg 24 hr tablet Take 1 tablet (10 mg total) by mouth 1 (one) time each day. Do not crush, chew, or split. 90 tablet 1 5 Active losartan (COZAAR) 100 mg tablet Take 1 tablet (100 mg total) by mouth 1 (one) time each day. 90 tablet 1 5 Active metFORMIN (GLUCOPHAGE) 1,000 mg tablet Take 1 tablet (1,000 mg total) by mouth 2 (two) times a day. 180 tablet 1 5 Active cholecalcifero l (VITAMIN D-3) 1,250 mcg (50,000 unit) capsule Take 1 capsule (50,000 Units total) by mouth. 5 03/31/20 25 Discontin ued(Reord er) cyanocobalamin , vitamin B-12, 1,000 mcg tablet, sublingual TAKE 1 TABLET (SUBLINGUAL) DAILY FOR 90 DAYS 5 03/31/20 25 Discontin ued(Reord er) glipiZIDE (GLUCOTROL XL) 10 mg 24 hr tablet TAKE 1 TABLET (ORAL) FOR 90 DAYS 5 03/31/20 25 Discontin ued(Reord er) losartan (COZAAR) 100 mg tablet Take 1 tablet (100 mg total) by mouth 1 (one) time each day. 5 03/31/20 25 Discontin ued(Reord er) metFORMIN (GLUCOPHAGE) 1,000 mg tablet Take 1 tablet (1,000 mg total) by mouth 2 (two) times a day. 5 03/31/20 25 Discontin ued(Reord er) atorvastatin (LIPITOR) 10 mg tablet Take 1 tablet (10 mg total) by mouth 1 (one) time each day. 30 each 5 5 03/31/20 25 Discontin ued(Reord er) Active Problems Problem Noted Date Diagnosed Date Diabetes mellitus ([facility] V24, [facility] V28) Diabetic retinopathy ([facility] V24, [facility] V28) 02/15/2025 Extramedullary hematopoiesis 02/15/2025 Hypercholesterolemia 02/15/2025 Hypertension 02/15/2025 Menorrhagia 02/15/2025 Microalbuminuria 02/15/2025 Severe obesity ([facility] V24, [facility] V28) 2024 Submucous leiomyoma of uterus 02/15/2025 Anemia 02/15/2025 Bilateral kidney stones 02/15/2025 Perimenopausal 04/19/2006 Encounters Date Type Department Care Team Description 03/30/2025 9:52 AM EDT - 03/30/2025 11:59 PM EDT Hospital Encounter [facility] Ultrasound [address] [place] [id number] Type 2 diabetes mellitus with diabetic chronic kidney disease ([facility] V24, [facility] V28); Chronic kidney disease, stage 3 unspecified ([facility] V24, [facility] V28); Essential (primary) hypertension Discharge Disposition: Home or Self Care 03/01/2025 Telephone Internal Medicine [address] [address] Gwendolyn aRm [place] Lab Results 02/15/2025 2:00 PM EDT Office Visit Internal Medicine [address] [phone] Camron Stovall MD Diabetes mellitus due to underlying condition with chronic kidney disease, without long-term current use of insulin, unspecified CKD stage ([facility] V24, [facility] V28) (Primary Dx); Primary hypertension; Hypercholesterolemia; Stage [...] Care Team (Late st Contact Info) Description 05/17/2025 2:00 PM EDT Consult Orthopedic Surgery - [place] [address] [phone] Reynold Sebastian DPM [address] [address] 07/05/2025 1:15 PM EST Office Visit Internal Medicine - [place] 175 [facility] [address] [place] [address] Camron Stovall MD [address] [facility] [address] [place] [address] Health Maintenance Due Date Last Done Comments Breast Cancer Screening 1959 Diabetes: Annual Foot Exam 1969 Diabetes: Annual Retina Eye Exam 1969 Zoster Vaccines (1 of 2) 1978 RSV Immunization Adult Patients (1 - Risk 60-74 years 1-dose series) 2019 Colorectal Cancer Screening: Colonoscopy 08/04/2022 Hepatitis C Screening 08/04/2022 Medicare Annual Wellness Visit 08/04/2022 Osteoporosis Screening (Bone Density Screening) 08/04/2022 Social Influencers of Health Screening 08/04/2022 Falls Risk Assessment 2024 Depression Screening 09/02/2024 Diabetes: Annual Urine Albumin-Creatinine Ratio (uACR) 09/04/2024 [...] Procedure Name Priority Date/Time Associated Diagnosis Comments US RETROPERITONEAL COMPLETE Routine 03/30/2025 10:36 AM EDT Type 2 diabetes mellitus with diabetic chronic kidney disease (CMS/HCC V24, CMS/HCC V28) Chronic kidney disease, stage 3 unspecified (CMS/HCC V24, CMS/HCC V28) Essential (primary) hypertension EXTERNAL CLINICAL LAB 03/17/2025 EXTERNAL CLINICAL LAB 03/17/2025 CBC WITH AUTO DIFFERENTIAL Routine 02/22/2025 9:19 [...] V28) from Last 3 Months Results * US Retroperitoneal Complete (03/30/2025 10:36 AM EDT) Anatomical Region Laterality Modality Body Ultrasound 03/31/2025 11:5 3 AM EDT Impressions 03/31/2025 11:59 AM EDT 1. Renal ultrasound examination demonstrates normal appearance of the right kidney. 2 small nonobstructing calculi are present in the left kidney, at the interpolar region measuring 8.2 mm and at the lower pole measuring 11.8 mm. 2. Doppler evaluation of the renal arteries demonstrates no evidence of right renal artery stenosis. On the left, there is mild increase in velocity in the proximal renal artery, although the renal to aortic ratio is normal. Velocity in the proximal left renal artery is considerably higher than that on the right. These findings raise the possibility of stenosis of the proximal left renal artery. Further evaluation with CTA or MRA may be considered for further evaluation. Code 27625, 18948 -------- FINAL REPORT -------- Dictated By: Andrea Duggan Dictated Date: 03/31/2025 11:53 ET Assigned Physician: Andrea Duggan Reviewed and Electronically Signed By: Andrea Duggan Signed Date: 03/31/2025 11:59 ET Workstation ID: [id number] Transcribed By: Self Edit Transcribed Date: 03/31/2025 11:53 ET Narrative 03/31/2025 11:59 AM EDT HISTORY: The patient is a 64-year-old female with type 2 diabetes and hypertension. FINDINGS: Real-time ultrasonography of the kidneys is performed. The right kidney is normal in size and appearance, measuring 9.2 cm in length. There is normal cortical thickness and no mass, calculus, or hydronephrosis is seen. The left kidney is normal in size, measuring 10.5 cm in length. There is normal cortical thickness and no mass or hydronephrosis is seen. There is an 8.2 mm diameter echogenic focus at the interpolar region consistent with a nonobstructing calculus. A second, 11.8 mm nonobstructing calculus is present at the lower pole. Doppler interrogation of the renal arteries was then performed. In the right kidney, the acceleration times in the upper, mid, and lower pole are 0.16 seconds, 0.06, and 0.04, respectively. The resistive indices in the upper, mid, lower pole are 0.58, 0.57, and 0.45, respectively. The velocities in the proximal, mid, and distal renal artery are 67.4 cm/sec, 43.2, and 48.9, respectively. The renal to aortic ratio is 0.75. These values are all within normal limits with the exception of mildly prolonged acceleration time in the upper pole. In the left kidney, the acceleration times in the upper, mid, and lower pole are 0.08 seconds, 0.13, and 0.04, respectively. The resistive indices in the upper, mid, lower pole are 0.60, 0.67, and 0.56, respectively. The velocities in the proximal, mid, and distal renal artery are 187.2 cm/sec, 65.9, and 99.5, respectively. The renal to aortic ratio is 2.08. These values are within normal limits with the exception of mild increase in velocity in the proximal renal artery. There is also mild prolongation of the acceleration time at the interpolar area. Procedure Note Andrea Duggan MD - 03/31/2025 HISTORY: The patient is a 64-year-old female with type 2 diabetes andhypertension. FINDINGS: Real-time ultrasonography of the kidneys is performed. The rightkidney is normal in size and appearance, measuring 9.2 cm in length. Thereis normal cortical thickness and no mass, calculus, or hydronephrosis isseen. The left kidney is normal in size, measuring 10.5 cm in length.There is normal cortical thickness and no mass or hydronephrosis is seen.There is an 8.2 mm diameter echogenic focus at the interpolar regionconsistent with a nonobstructing calculus. A second, 11.8 mmnonobstructing calculus is present at the lower pole. Doppler interrogation of the renal arteries was then performed. In theright kidney, the acceleration times in the upper, mid, and lower pole are0.16 seconds, 0.06, and 0.04, respectively. The resistive indices in theupper, mid, lower pole are 0.58, 0.57, and 0.45, respectively. Thevelocities in the proximal, mid, and distal renal artery are 67.4 cm/sec,43.2, and 48.9, respectively. The renal to aortic ratio is 0.75. Thesevalues are all within normal limits with the exception of mildly prolongedacceleration time in the upper pole. In the left kidney, the acceleration times in the upper, mid, and lowerpole are 0.08 seconds, 0.13, and 0.04, respectively. The resistive indicesin the upper, mid, lower pole are 0.60, 0.67, and 0.56, respectively. Thevelocities in the proximal, mid, and distal renal artery are 187.2 cm/sec,65.9, and 99.5, respectively. The renal to aortic ratio is 2.08. Thesevalues are within normal limits with the exception of mild increase invelocity in the proximal renal artery. There is also mild prolongation ofthe acceleration time at the interpolar area. IMPRESSION: 1. Renal ultrasound examination demonstrates normal appearance of theright kidney. 2 small nonobstructing calculi are present in the leftkidney, at the interpolar region measuring 8.2 mm and at the lower polemeasuring 11.8 mm. 2. Doppler evaluation of the renal arteries demonstrates no evidence ofright renal artery stenosis. On the left, there is mild increase invelocity in the proximal renal artery, although the renal to aortic ratiois normal. Velocity in the proximal left renal artery is considerablyhigher than that on the right. These findings raise the possibility ofstenosis of the proximal left renal artery. Further evaluation with CTA orMRA may be considered for further evaluation. Code 76817, 54659 -------- FINAL REPORT -------- Dictated By: Andrea Duggan Dictated Date: 03/31/2025 11:53 ET Assigned Physician: Andrea Duggan Reviewed and Electronically Signed By: Andrea Duggan Signed Date: 03/31/2025 11:59 ET Workstation ID: [id number] Transcribed By: Self Edit Transcribed Date: 03/31/2025 11:53 ET us Thaddeus Mei MD IM US PROCEDURES Final Result * External clinical lab (03/17/2025) Only the most recent of2 resultswithin the time period is included. us Provider [facility] LAB BLOOD ORDERABLES Fin al Result * (ABNORMAL) Lipid panel with reflex to direct LDL (02/22/2025 9:19 AM EDT) Cholesterol 327(H) 0 - 200 mg/dL LAB CHEMISTRY METHOD 02/22/2025 8:24 PM EDT [facility] Triglycerides 263(H) 0 - 150 mg/dL LAB CHEMISTRY METHOD 02/22/2025 8:24 PM EDT [facility] HDL 56 >=40 mg/dL LAB CHEMISTRY METHOD 02/22/2025 8:24 PM EDT [facility] LDL Calculated 218(H) 0 - 100 mg/dL LAB CHEMISTRY METHOD 02/22/2025 8:24 PM EDT [facility] VLDL Cholesterol Solsi 52.6 mg/dL LAB CHEMISTRY METHOD 02/22/2025 8:24 PM EDT [facility] Non HDL Chol. (LDL+VLDL) 271(H) <145 mg/dL LAB CHEMISTRY METHOD 02/22/2025 8:24 PM EDT [facility] Chol/HDL Ratio 5.8(H) 0.0 - 4.4 LAB CHEMISTRY METHOD 02/22/2025 8:24 PM EDT [facility] Blood Venous blood specimen / Unknown Venipuncture / Unknown 02/22/2025 9:19 AM EDT 02/22/2025 9:20 AM EDT Camron Stovall MD LAB BLOOD ORDERABLES Final Resul t [facility] [address] [place] [address], [place] [phone] * (ABNORMAL) CBC auto differential (02/22/2025 9:19 AM EDT) [facility] WBC 6.7 4.8 - 10.8 K/mcL LAB HEMETOLOGY METHOD 02/22/2025 2:15 PM EDT [facility] RBC 4.80 3.80 - 4.80 M/mcL LAB HEMETOLOGY METHOD 02/22/2025 2:15 PM EDT [facility] Hemoglobin 12.5 11.5 - 16.0 g/dL LAB HEMETOLOGY METHOD 02/22/2025 2:15 PM EDT [facility] Hematocrit 40.3 35.0 - 47.0 % LAB HEMETOLOGY METHOD 02/22/2025 2:15 PM EDT [facility] MCV 84.8 79.0 - 98.0 FL LAB HEMETOLOGY METHOD 02/22/2025 2:15 PM [facility] MCH 26.3(L) 27.0 - 32.0 pcg LAB HEMETOLOGY METHOD 02/22/2025 2:15 PM [facility] MCHC 31.0(L) 32.0 - 37.0 g/dL LAB HEMETOLOGY METHOD 02/22/2025 2:15 PM [facility] RDW 13.5 11.0 - 15.0 % LAB HEMETOLOGY METHOD 02/22/2025 2:15 PM [facility] Platelets 224 130 - 400 K/mcL LAB HEMETOLOGY METHOD 02/22/2025 2:15 PM T [facility] MPV 13.4(H) 7.0 - 11.0 FL LAB HEMETOLOGY METHOD 02/22[facility]2025 [facility] NRBC 0.0 <1.0 % LAB HEMETOLOGY METHOD 02/22/2025 2:[facility] NRBC Absolute 0.00 <0.10 K/mcL LAB HEMETOLOGY METHOD 02/22/2025 2:15 PM EDT [facility] Neutrophils Relative 47.4 % LAB HEMETOLOGY METHOD 02/22/2025 2:15 PM T [facility] Lymphocytes Relative 38.7 % LAB HEMETOLOGY METHOD 02/22/2025 2:15 PM [facility] Monocytes Relative 10.2 % LAB HEMETOLOGY METHOD 02/22/2025 2:15 PM [facility] Eosinophils Relative 2.8 % LAB HEMETOLOGY METHOD 02/22/2025 2:15 PM [facility] Basophils Relative 0.6 % LAB HEMETOLOGY METHOD 02/22/2025 2:15 PM [facility] Immature Granulocytes Relative 0.3 % LAB HEMETOLOGY METHOD 02/22/2025 2:15 PM [facility] Neutrophils Absolute 3.17 1.50 - 7.00 K/mcL LAB HEMETOLOGY METHOD 02/22/2025 2:15 PM [facility] Lymphocytes Absolute 2.59 1.00 - 5.00 K/mcL LAB HEMETOLOGY METHOD 02/22/2025 2:15 PM [facility] Monocytes Absolute 0.68 0.20 - 1.00 K/mcL LAB HEMETOLOGY METHOD 02/22/2025 2:15 PM [facility] Eosinophils Absolute 0.19 0.00 - 0.50 K/mcL LAB HEMETOLOGY METHOD 02/22/2025 2:15 PM [facility] Basophils Absolute 0.04 0.00 - 0.20 K/mcL LAB HEMETOLOGY METHOD 02/22/2025 2:15 PM [facility] Immature Granulocytes Absolute 0.02 0.00 - 0.03 K/mcL LAB HEMETOLOGY METHOD 02/22/2025 2:15 PM [facility] Blood Venous blood specimen / Unknown Venipuncture / Unknown 02/22/2025 9:19 AM EDT 02/22/2025 9:20 AM EDT us Camron Stovall MD LAB BLOOD ORDERABLES Final Resul t Performing Organization Address City/[facility]/ZIP Co de Phone Number [facility] [address] [place] [address], [place] [phone] * Thyroid stimulating hormone (02/22/2025 9:19 AM EDT) TSH 2.35 0.40 - 4.00 mcIU/mL LAB CHEMISTRY METHOD 02/22/2025 8:42 PM EDT [facility] Blood Venous blood specimen / Unknown Venipuncture / Unknown 02/22/2025 9:19 AM EDT 02/22/2025 9:20 AM EDT us Camron Stovall MD LAB BLOOD ORDERABLES Final Resul t Performing Organization Address [facility] de Phone Number [facility] [address] [place] [address], [place] [phone] * (ABNORMAL) Hemoglobin A1c (02/22/2025 9:19 AM EDT) Hemoglobin A1C 9.6(H) <6.5 % LAB CHEMISTRY METHOD 02/22/2025 9:17 PM EDT [facility] Mean Bld Glu Estim. 229 mg/dL LAB CHEMISTRY METHOD 02/22/2025 9:17 PM EDT [facility] Blood Venous blood specimen / Unknown Venipuncture / Unknown 02/22/2025 9:19 AM EDT 02/22/2025 9:20 AM EDT us Camron Stovall MD LAB BLOOD ORDERABLES Final Resul t Performing Organization Address City/[facility]/ZIP Co de Phone Number [facility] [address] [place] [address], * (ABNORMAL) Comprehensive metabolic panel (02/22/2025 9:19 AM EDT) Sodium 140 133 - 145 mmol/L LAB CHEMISTRY METHOD 02/22/2025 8:26 PM [facility] Potassium 4.6 3.5 - 5.5 mmol/L LAB CHEMISTRY METHOD 02/22/2025 8:26 PM [facility] Chloride 106 96 - 110 mmol/L LAB CHEMISTRY METHOD 02/22/2025 8:26 PM [facility] CO2 27 21 - 32 mmol/L LAB CHEMISTRY METHOD 02/22/2025 8:26 PM [facility] Anion Gap 7 3 - 11 LAB CHEMISTRY METHOD 02/22/2025 8:26 PM [facility] Glucose 257(H) 70 - 100 mg/dL LAB CHEMISTRY METHOD 02/22/2025 8:26 PM [facility] BUN 33(H) 5 - 25 mg/dL LAB CHEMISTRY METHOD 02/22/2025 8:26 PM [facility] Creatinine 1.30(H) 0.50 - 1.10 mg/dL LAB CHEMISTRY METHOD 02/22/2025 8:26 PM [facility] eGFR 46(L) >=60 mL/min/1. 73m2 LAB CHEMISTRY METHOD 02/22/2025 8:26 PM [facility] Comment:Calculation based on the Chronic Kidney Disease Epidemiology Collaboration (CKD-EPI) equation refit without adjustment for race. BUN/Creatinine Ratio 25.4 LAB CHEMISTRY METHOD 02/22/2025 8:26 PM [facility] Calcium 10.1 8.5 - 10.5 mg/dL LAB CHEMISTRY METHOD 02/22/2025 8:26 PM [facility] AST (SGOT) 11 10 - 42 unit/L LAB CHEMISTRY METHOD 02/22/2025 8:26 PM EDT [facility] ALT (SGPT) 19 10 - 60 unit/L LAB CHEMISTRY METHOD 02/22/2025 8:26 PM EDT [facility] Alkaline Phosphatase 72 42 - 121 unit/L LAB CHEMISTRY METHOD 02/22/2025 8:26 PM EDT [facility] Total Protein 7.3 6.0 - 8.0 g/dL LAB CHEMISTRY METHOD 02/22/2025 8:26 PM EDT [facility] Albumin 3.7 3.2 - 5.0 g/dL LAB CHEMISTRY METHOD 02/22/2025 8:26 PM EDT [facility] Total Bilirubin 0.3 0.0 - 1.4 mg/dL LAB CHEMISTRY METHOD 02/22/2025 8:26 PM EDT [facility] Blood Venous blood specimen / Unknown Venipuncture / Unknown 02/22/2025 9:19 AM EDT 02/22/2025 9:20 AM EDT us Camron Stovall MD LAB BLOOD ORDERABLES Final Resul t [facility] [address] [place] [address], [place] [phone] from Last 3 Months Insurance MEDICAID - [place] [employer] MEDICARE Care Teams Produce Wrapper Relationship Specialty Start Date End Date Camron Stovall MD [address] [address] PCP - General Internal Medicine 06/19/24
== END 2025-04-20 15:43 | disposition home or self-care (01) ==
LOC: HO.HKAS 15:12
PROVIDERS: PCP Internal Medicine; Visit Provider Internal Medicine Nephrology
DX: E11.22 Type 2 diabetes mellitus with diabetic chronic kidney disease (principal); N18.30 Chronic kidney disease, stage 3 unspecified; I10 Essential (primary) hypertension; N20.0 Calculus of kidney; I70.1 Atherosclerosis of renal artery
CPT/HCPCS: 99214

== ENCOUNTER → 2025-04-20 15:11 | Outpatient (BNVA) | payer OTHER, SELFPAY | PROVIDERS: PCP Internal Medicine; Visit Provider Internal Medicine Nephrology | DX: E11.22 Type 2 diabetes mellitus with diabetic chronic kidney disease (principal); I12.9 Hypertensive chronic kidney disease with stage 1 through stage 4 chronic kidney disease, or unspecified chronic kidney disease; N18.30 Chronic kidney disease, stage 3 unspecified; N20.0 Calculus of kidney; I70.1 Atherosclerosis of renal artery | CPT/HCPCS: 99212 ==